=== PATIENT | male | born 1945 | race Caucasian/White ===

== ENCOUNTER → 2017-05-02 | Outpatient (CLI) | payer MEDICARE ==
[~2017-05-02] MED LIST: ALPRAZOLAM1 MG PO; ASPIRIN 81MG TA81 MG; FEXOFENADINE180 MG OR; HYDROCODONE 7.51 TAB PO; LISINOPRIL10 MG PO; METHOCARBAMOL750 MG
[2017-05-02 10:38] LABS: HEMOGLOBIN 14.1 g/dL (14.1-18.0); LYMPH # 1.9 K/mm3 (0.7-4.5); LYMPH % 30.8 % (10-50)
[2017-05-02 12:26] LABS: BUN 17 mg/dL (7-18)
[2017-05-02 12:27] LABS: GFR (ESTIMATED) 60 ML/MIN (>60)
== END ==
LOC: LAB 10:22
PROVIDERS: Nurse Practitioner Family
DX: R20.2 Paresthesia of skin (principal); R73.9 Hyperglycemia, unspecified; E78.2 Mixed hyperlipidemia

== ENCOUNTER → 2017-07-31 | Outpatient (CLI) | payer MEDICARE ==
[2017-07-31 18:59] LABS: BUN 15 mg/dL (7-18); GFR (ESTIMATED) 66 ML/MIN (>60); PROSTATE-SPECIFIC AG SCREEEN < 0.1 ng/mL (0.0-4.0)
== END ==
LOC: LAB 15:26
PROVIDERS: Nurse Practitioner Family
DX: N40.0 Benign prostatic hyperplasia without lower urinary tract symptoms (principal); R73.9 Hyperglycemia, unspecified; Z12.5 Encounter for screening for malignant neoplasm of prostate
CPT/HCPCS: G0103